=== PATIENT | male | born 1995 | race Two or more races ===

== ENCOUNTER 2020-10-05 08:24 | Emergency (ER) | payer BC, OTHER ==
[~2020-10-05] VITALS: Ht 182.9 cm; Wt 122.5 kg
[2020-10-05 08:50] VITALS: BP 157/84
== END 2020-10-05 09:16 | disposition home or self-care (01) ==
LOC: ER 08:24
DX: L08.9 Local infection of the skin and subcutaneous tissue, unspecified (principal)